=== PATIENT | female | born 1980 | race Caucasian/White ===

== ENCOUNTER 2017-06-24 02:19 | Day surgery (SDC) | payer OTHER ==
[2017-06-24] MEDS ORDERED: Promethazine HCl 25 MG/ML VIAL IM/IV PRN (02:54)
--- NOTE | 2017-06-24 02:58 | PDOC.EVN ---
Event Note - Event Note Event Note: Patient just arrived to Triage. Time: 0250 Location: L&D Patient of Dr Rosemarie Frank CC: possible renal colic HPI: 36 yo at 30 weeks 2 days (EDC 08/31/17), here for possible renal colic. Last episode of annemarie;l colic was years ago. No past surgical intervention. Past OB: SVDs Allergies: None Remainder of eval pending as I am currently beginning an operative case with another patient. If needed, care will be transferred to [facility] as I am in the OR. I will review once out of the OR. Orders for IVF, pain meds, cath UA, renal bilateral sono placed.
[2017-06-24] MEDS ORDERED: Lactated Ringer's 1,000 ML IV SCH ×2 (03:00→04:15)
[2017-06-24 03:29] VITALS: BP 124/84; TEMP 98.1
[2017-06-24 03:49] VITALS: BMI 31.7
--- NOTE | 2017-06-24 04:02 | PDOC.EVN ---
Event Note - Event Note Event Note: @0400: Please see full H&P in handwritten progress note in chart. Labs and US ordered. Patient seen at bedside. Index of suspicion for renal colic is low as patient not clinically with renal colic sxs. On interview, patient was suspicious of a stone due to "pink" urine. No other sxs.
[2017-06-24] MEDS ORDERED: HYDROcodone/Acetaminophen 5/325 mg Tablet PO PRN ×2 (04:11)
[2017-06-24] MEDS ORDERED: Adacel (T-DAP) 0.5 ML VIAL IM ONE (04:11)
[2017-06-24] MEDS ORDERED: Meperidine HCl/PF 25 MG/ML VIAL IM PRN (04:11)
[2017-06-24] MEDS ORDERED: Lanolin Ointment 7 GM TUBE TOP PRN (04:11)
[2017-06-24] MEDS ORDERED: Varicella virus, LIVE 0.5 ML VIAL SC ONE (04:11)
[2017-06-24] MEDS ORDERED: Simethicone Chewable 80 MG TAB PO PRN (04:11)
[2017-06-24] MEDS ORDERED: Measles/Mumps/Rubella 10 MCG/0.5 ML VIAL SC ONE (04:11)
[2017-06-24] MEDS ORDERED: diphenhydrAMINE 25 MG CAP PO PRN (04:11)
--- NOTE | 2017-06-24 04:15 | PDOC.EVN ---
Event Note - Event Note Event Note: Cervix closed. Renal sono with physiologic hydro on right as only finding ( verbal). Labs pending. patient comfortable.
[2017-06-24 04:18] LABS: #Eosinphils 0.1 thou/uL (0.0-0.7); #Lymphocytes 1.6 thou/uL (1.20-3.40); #Monocytes 0.4 thou/uL (0.11-0.59); #Neutrophils 7.7 thou/uL (1.40-6.50); %Basophils 0.3 % (0.0-1.0); %Eosinophils 1.2 % (0.0-10.0); %Lymphocytes 16.6 % (21.0-51.0); %Monocytes 3.9 % (0.0-10.0); Hemoglobin 11.9 g/dL (12.0-16.0); Mean Corpuscular HGB CONC 34.6 g/dL (32.0-36.0); Mean Corpuscular Hemoglobin 32.1 pg (27.0-31.0); Mean Corpuscular Volume 92.7 fl (81.0-99.0); Mean Platelet Volume 6.2 fL (7.4-10.4); Platelet Count 225 thou/uL (130-400); RBC Distribution Width 11.1 % (11.5-14.5); Red Blood Cell (RBC) Count 3.71 mill/uL (4.20-5.40); White Blood Cell (WBC) Count 9.8 thou/uL (4.8-10.8)
[2017-06-24 04:30] LABS: Bilirubin Negative (Negative); Blood, Urine Large (Negative); Clarity CLOUDY (Clear); Glucose, Urine (Dipstick) Negative (Negative); Leukocyte Negative (Negative); Nitrite Negative (Negative); Protein, Urine (Dipstick) 30 mg/dL (Neg-Trace); Specific Gravity, Urine 1.012 (1.002-1.036); Urobilinogen 0.2 mg/dL (0.2-1.0); pH, Urine 6.5 (5.0-9.0)
[2017-06-24 04:33] LABS: Bacteria/HPF None Seen HPF (None Seen); Hyaline Casts/LPF 4-6 HYALINE CAST LPF (0-3 Hyaline); Pathc Cast-AUWi Flag 1.59 (0-2.49); RBC/HPF GREATER THAN 50-TNTC HPF (0-3); WBC/HPF 0-3 HPF (0-3)
[2017-06-24 04:39] LABS: Crystals/HPF None Seen HPF (Negative); Renal Epithelial None Seen HPF (0-3); Transitional Epithelial NONE SEEN HPF (0-3); Yeast-All Forms None Seen HPF (None Seen)
--- NOTE | 2017-06-24 04:54 | PDOC.EVN ---
Event Note - Event Note Event Note: Labs: CBC normal. UA with hematuria. As patient stable, afebrile, without dysuria, we will follow as outpatient. If hematuria persists, may alejo urology evaluation .
[2017-06-24] MEDS ORDERED: Ibuprofen 800 MG TAB PO SCH (06:00)
[2017-06-24] MEDS ORDERED: Prenatal Vitamin 1 TAB PO SCH (09:00)
--- NOTE | 2017-06-24 09:42 | ULT ---
PRELIMINARY REPORT/[facility]/EMERGENTY AFTER-HOURS PROCEDURE US Retroperitoneal Complete EXAM DATE/TIME: Exam ordered 06/24/2017 3:06 AM CLINICAL HISTORY: 36 years old, female; Pain; Other: Rt flank pain; ; Patient HX: Patient 30 wks with rt flank pain; Additional info: HX: Kidney stones TECHNIQUE: Real-time ultrasound of the retroperitoneum (complete) with image documentation. COMPARISON: No relevant prior studies available. FINDINGS: Right kidney: There is severe RIGHT hydroureteronephrosis. The RIGHT kidney measures 12.0-5.5 x 5.6 c m. No calculi are identified. Left kidney: The LEFT kidney measures 10.4 x 4.6 x 4.6 cm. no calculi or hydronephrosis. Bladder: Prevoid urinary bladder volume measures 6 cc. IMPRESSION: There is severe RIGHT hydroureteronephrosis. Thank you for allowing us to participate in the care of your patient. Dictated and Authenticated by: Grabiel Chambers MD 06/24/2017 4:26 AM Central Time ([place] & [place]) FINAL REPORT BILATERAL RENAL ULTRASOUND: Date: 06/24/17 COMPARISON: 09/12/12. HISTORY: Renal colic. TECHNIQUE: Sagittal and transverse imaging of kidneys performed. FINDINGS: This report is in agreement with the preliminary report by Zaheer. There is moderate to severe right-si ded hydronephrosis and hydroureter. Despite interrogation, the health record technician reports that the right ure teral jet cannot be appreciated. There is left renal cortical thinning suggesting chronic kidney disease. No evidence of left-sided ob structive uropathy. IMPRESSION: Severe right-sided obstructive uropathy. The right ureteral jet is not appreciated. POS: PPP
== END 2017-06-24 05:33 | disposition home or self-care (01) ==
LOC: L&D/OP 02:19
PROVIDERS: ATTEND Family Medicine
DX: O99.89 Other specified diseases and conditions complicating pregnancy, childbirth and the puerperium (principal); N13.39 Other hydronephrosis; R10.9 Unspecified abdominal pain; R31.9 Hematuria, unspecified; O09.523 Supervision of elderly multigravida, third trimester; Z3A.30 30 weeks gestation of pregnancy; Z88.0 Allergy status to penicillin; Z91.018 Allergy to other foods
CPT/HCPCS: 76770; 81003; 81015; 85025; 96360; 99283; J0595; J2550

== ENCOUNTER 2017-07-06 13:51 | Outpatient (CLI) | payer OTHER ==
[2017-07-06 14:42] LABS: Anion Gap 13 mmol/L (10-20); BUN (Urea Nitrogen) 10 mg/dL (7.0-18.7); Calc. Creatinine Clearance 0 mL/min (70-130); Calcium 9.6 mg/dL (7.8-10.44); Carbon Dioxide 24 mmol/L (22-29); Chloride 104 mmol/L (98-107); Estimated GFR-MDRD Greater than 90; Glucose 98 mg/dL (70-105); Sodium 137 mmol/L (136-145)
--- NOTE | 2017-07-06 14:54 | ULT ---
RENAL ULTRASOUND: COMPARISON: 06/24/17. HISTORY: Renal calculi. Obstruction. patient. TECHNIQUE: Sagittal and transverse imaging of the kidneys is performed. FINDINGS: The right kidney measures 11.5 x 6.6 x 5.7 cm. The left kidney measures 11.7 x 4.6 x 4.1 cm. Severe right-sided hydronephrosis, similar to the previous examination. Echogenic material in the lo wer pole of the right kidney measuring 1.0 cm may represent nonobstructing intrarenal calculi. No evidence of left-sided hydronephrosis. The urinary bladder is unremarkable. Pre void bladder volume is 228 cm. Post void bladder is nearly empty. Note, the left ureteral jet was appreciated. The right ureteral jet was not seen. IMPRESSION: 1. Persistent severe right-sided hydronephrosis. The right ureteral jet was not seen. 2. Nonobstructing calculi in the lower pole of the right kidney. Results of the study discussed with Jael Jackson's human resources office assistant 07/06/17 at 3:10 p.m. CODE CR POS: PASCALE
[2017-07-06 14:59] LABS: Bilirubin Negative (Negative); Blood, Urine Negative (Negative); Clarity Clear (Clear); Glucose, Urine (Dipstick) Negative (Negative); Leukocyte Negative (Negative); Nitrite Negative (Negative); Protein, Urine (Dipstick) Negative (Neg-Trace); Urobilinogen 0.2 mg/dL (0.2-1.0)
[2017-07-06 15:27] LABS: Bacteria/HPF Rare-Few HPF (None Seen); RBC/HPF None Seen HPF (0-3); WBC/HPF None Seen HPF (0-3)
== END 2017-07-06 13:52 | disposition home or self-care (01) ==
LOC: SCSULT 13:51
PROVIDERS: ATTEND Urology
DX: N20.0 Calculus of kidney (principal); N13.30 Unspecified hydronephrosis
CPT/HCPCS: 76770; 80048; 81001

== ENCOUNTER 2017-07-22 07:03 | Day surgery (SDC) | payer OTHER ==
[2017-07-21 10:33] VITALS: BMI 32.2
[2017-07-22 07:35] LABS: Calc. Creatinine Clearance 163 mL/min (70-130); Estimated GFR-MDRD Greater than 90
[2017-07-22 07:40] LABS: INR-International Normal Ratio 0.9; Prothrombin Time 12.3 SEC (12.0-14.7)
[2017-07-22 07:44] LABS: PTT 24.9 SEC (22.9-36.1)
[2017-07-22 07:57] VITALS: BP 113/65; TEMP 97.8
[2017-07-22] MEDS ORDERED: cefTRIAXone\\ROCEPHIN 1 GM in Sodium Chloride 0.9% 100 ML IVPB SCH (08:00)
--- NOTE | 2017-07-22 10:28 | ULT ---
RENAL SONOGRAM: HISTORY: Hydronephrosis. [id number] . COMPARISON: 07/06/2017 FINDINGS: On today's exam, the right kidney is 10.4 cm. Hydronephrosis is similar to the previous exam. The l eft kidney has a normal appearance without hydronephrosis. Initially, the urinary bladder was completely decompressed. The patient was given IV saline for hydration and distention of the urinary bladder. A strong left u reteral jet was visualized. A less prominent right ureteral jet was confidently identified on multip le occasions. The right renal cortex is significantly thinned, suggesting that the hydronephrosis and developing at [facility] are significantly more chronic than the 34-week . IMPRESSION: 1. Right hydronephrosis, not significantly changed. 2. Right ureteral jet confidently demonstrated. 3. Given the visualization of the right ureteral jet and the chronic appearing atrophy of the right kidney, the appearance is suggestive of a longstanding partial obstruction. Given the patient's 34 w viejas , the scheduled percutaneous nephrostomy is favored to not be best for the patient. Ple ase consider renal/urinary workup after . Radionuclide renogram would evaluate for differen tial renal function and urine clearance from the renal collecting systems. Findings were discussed in detail with the patient, who understands and agrees. A message was also left with Dr. Jackson regarding the findings and plan. CODE CR POS: PASCALE
== END 2017-07-22 10:30 | disposition home or self-care (01) ==
LOC: SPEC 07:03
PROVIDERS: ATTEND Urology
DX: O99.89 Other specified diseases and conditions complicating pregnancy, childbirth and the puerperium (principal); N13.30 Unspecified hydronephrosis; Z3A.34 34 weeks gestation of pregnancy; Z88.0 Allergy status to penicillin; Z91.018 Allergy to other foods; Z91.013 Allergy to seafood; Z79.899 Other long term (current) drug therapy
CPT/HCPCS: 36415; 76770; 82565; 85610; 85730; J0696; J7050

== ENCOUNTER 2017-08-25 05:00 | Inpatient (IN) | payer OTHER ==
[2017-08-25] MEDS ORDERED: Lidocaine 1% (PF) 30 ML VIAL SC PRN (06:14)
[2017-08-25] MEDS ORDERED: Methylergonovine 0.2 MG/ML VIAL IM PRN (06:14)
[2017-08-25] MEDS ORDERED: NS w/ Oxytocin 10 units 500 ML IV SCH ×2 (06:14)
[2017-08-25] MEDS ORDERED: NS / Oxytocin 40 units/1000ml 1,000 ML IV PRN (06:14)
[2017-08-25] MEDS ORDERED: Misoprostol 200 MCG TAB PR PRN (06:14)
[2017-08-25] MEDS ORDERED: Butorphanol Tartrate 1 MG/ML VIAL SLOW IVP PRN (06:14)
[2017-08-25] MEDS ORDERED: HYDROcodone/Acetaminophen 5/325 mg Tablet PO PRN ×2 (06:14→13:30)
[2017-08-25] MEDS ORDERED: Ibuprofen 800 MG TAB PO PRN (06:14)
[2017-08-25] MEDS ORDERED: Acetaminophen 500 MG TAB PO PRN (06:14)
[2017-08-25] MEDS ORDERED: Ondansetron HCl/PF 4 MG/2 ML Vial IVP PRN ×3 (06:14→13:30)
[2017-08-25] MEDS ORDERED: Acetaminophen/Codeine 30-300mg Tablet PO PRN ×2 (06:14→13:30)
[2017-08-25] MEDS ORDERED: Promethazine HCl 25 MG/ML VIAL IM PRN ×2 (06:14→10:56)
[2017-08-25] MEDS: Lactated Ringer's 1,000 ML IV SCH ×2 (07:00→10:45)
[2017-08-25 07:12] LABS: Hemoglobin 11.8 g/dL (12.0-16.0); Mean Corpuscular HGB CONC 35.4 g/dL (32.0-36.0); Mean Corpuscular Hemoglobin 31.6 pg (27.0-31.0); Mean Corpuscular Volume 89.4 fL (78.0-98.0); Mean Platelet Volume 6.6 fL (7.4-10.4); Platelet Count 215 thou/uL (130-400); RBC Distribution Width 11.5 % (11.5-14.5); Red Blood Cell (RBC) Count 3.73 mill/uL (4.20-5.40); White Blood Cell (WBC) Count 8.2 thou/uL (4.8-10.8)
[2017-08-25 07:15] VITALS: BMI 32.8
[2017-08-25 07:58] LABS: Hep B Surf Ag Non-Reactive S/CO (NonReactive)
[2017-08-25 07:59] LABS: Syphilis Antibody Nonreactive (Nonreactive); Syphilis Antibody Index 0.06 S/CO (<1.00 Non-Reactive)
[2017-08-25] MEDS ORDERED: DISCONTINUE ALL PREVIOUS NARCOTICS FS SCH (08:45)
[2017-08-25] MEDS ORDERED: Bupivacaine 0.75% 13.4 ML, fentaNYL Citrate/PF 400 MCG in Sodium Chloride 0.9% 78.6 ML EPIDURAL SCH (08:45)
[2017-08-25] MEDS ORDERED: diphenhydrAMINE 50 MG/ML VIAL IVP PRN (10:56)
[2017-08-25] MEDS ORDERED: Naloxone HCl 0.4 mg/ml Vial IVP PRN ×2 (10:56)
[2017-08-25] MEDS ORDERED: Lactated Ringer's 500 ML IV PRN (10:56)
[2017-08-25] MEDS ORDERED: ePHEDrine/0.9% NaCl/PF SYRINGE 50 mg/10 ml SLOW IVP PRN (10:56)
[2017-08-25] MEDS ORDERED: Acetaminophen 325 MG TAB PO PRN (10:56)
[2017-08-25] MEDS ORDERED: Eucerin (Mineral Oil/Petrolatum,White) 30 gm Jar TOP PRN (10:56)
[2017-08-25] MEDS ORDERED: fentaNYL Citrate/PF 400 MCG, Bupivacaine 0.5% 20 ML in Sodium Chloride 0.9% 72 ML EPIDURAL SCH (11:00)
[2017-08-25] MEDS ORDERED: Communication Order-Pharmacy FS SCH (11:00)
[2017-08-25] MEDS ORDERED: Benzocaine/Menthol 20-0.5% 60 ML CAN TOP PRN (13:30)
[2017-08-25] MEDS ORDERED: NS / Oxytocin 40 units/1000ml 1,000 ML IV SCH (13:30)
[2017-08-25] MEDS ORDERED: Preparation H Ointment 28 GM TUBE PR PRN (13:30)
[2017-08-25] MEDS ORDERED: Lanolin Ointment 7 GM TUBE TOP PRN (13:30)
[2017-08-25] MEDS ORDERED: Milk Of Magnesia 30 ML UDCUP PO PRN (13:30)
[2017-08-25] MEDS ORDERED: traMADol HCl 50 MG TAB PO PRN (13:30)
[2017-08-25] MEDS ORDERED: Bisacodyl 10 MG SUPP PR PRN (13:30)
[2017-08-25] MEDS ORDERED: diphenhydrAMINE 25 MG CAP PO PRN (13:30)
[2017-08-25] MEDS ORDERED: Prenatal Vitamin 1 TAB PO SCH (13:45)
[2017-08-25] MEDS ORDERED: Docusate Calcium (SURFAK) 240 MG CAP PO SCH (13:45)
[2017-08-25] MEDS: Ibuprofen 800 MG TAB PO SCH ×2 (18:09→23:18)
[2017-08-25] MEDS: Docusate Calcium (SURFAK) 240 MG CAP PO SCH (21:52)
[2017-08-26] MEDS: Ibuprofen 800 MG TAB PO SCH ×2 (02:13→10:40)
[2017-08-26] MEDS ORDERED: Prenatal Vitamin 1 TAB PO SCH (09:00)
[2017-08-26] MEDS ORDERED: Adacel (T-DAP) 0.5 ML VIAL IM ONE (10:30)
[2017-08-26] MEDS: Docusate Calcium (SURFAK) 240 MG CAP PO SCH (10:37)
[2017-08-26 11:48] VITALS: BP 112/63; TEMP 98.5
[2017-08-26] MEDS ORDERED: Lidocaine 2% MPF 10 ML AMP (For Epidural Use) ONE (15:25)
== END 2017-08-26 15:50 | disposition home or self-care (01) | DRG 775 ==
LOC: L&D 06:09 → 3SW 17:00
PROVIDERS: ADMIT Family Medicine; ATTEND Family Medicine
PROC: 10907ZC Drainage of Amniotic Fluid, Therapeutic from Products of Conception, Via Natural or Artificial Opening (ICD-10-PCS; principal; 2017-08-25)
PROC: 10E0XZZ Delivery of Products of Conception, External Approach (ICD-10-PCS; 2017-08-25)
PROC: 3E0S3BZ Introduction of Anesthetic Agent into Epidural Space, Percutaneous Approach (ICD-10-PCS; 2017-08-25)
PROC: 00HU33Z Insertion of Infusion Device into Spinal Canal, Percutaneous Approach (ICD-10-PCS; 2017-08-25)
DX: O99.89 Other specified diseases and conditions complicating pregnancy, childbirth and the puerperium (principal); N13.2 Hydronephrosis with renal and ureteral calculous obstruction; Q61.5 Medullary cystic kidney; Z37.0 Single live birth; Z3A.39 39 weeks gestation of pregnancy; Z88.0 Allergy status to penicillin; Z64.1 Problems related to multiparity
CPT/HCPCS: 36415; 51702; 85027; 86780; 86850; 86900; 86901; 87340; 90715; J2001; J3010; J7050

== ENCOUNTER 2017-09-14 13:46 | Outpatient (CLI) | payer OTHER | END 2017-09-14 13:47 | disposition home or self-care (01) | LOC: BICULT 13:46 | PROVIDERS: ATTEND Urology | DX: N13.30 Unspecified hydronephrosis (principal); N28.89 Other specified disorders of kidney and ureter | CPT/HCPCS: 76770 ==

== ENCOUNTER 2021-01-13 20:13 | Emergency (ER) | payer SELFPAY ==
[2021-01-13 20:49] LABS: Bacteria/HPF None Seen HPF (None Seen); Bilirubin Negative (Negative); Blood, Urine Negative (Negative); Calcium Oxalate Crystals 2+ HPF (None Seen); Clarity Clear (Clear); Glucose, Urine (Dipstick) Normal (Negative); Ketone, Urine Negative (Negative); Leukocyte 25 Leu/uL (Negative); Mucous/LPF Rare LPF (<2+); Nitrite Negative (Negative); Protein, Urine (Dipstick) Negative (Neg-Trace); RBC/HPF 0-3 HPF (0-3); Specific Gravity, Urine 1.022 (1.002-1.036); Squamous Epithelial 0-3 HPF (0-3); Urobilinogen Normal mg/dL (Less than 2); pH, Urine 5.5 (5.0-9.0)
[2021-01-13 20:51] LABS: Pregnancy Test - Urine (BHCG) Negative (Negative); Pregu Control Background? CLEAR/WHITE (CLR/WHITE); Pregu Control Bar Appear? YES (CONTROL BAR); Specific Gravity 1.022 (1.002-1.036)
[2021-01-13 21:33] LABS: #Eosinphils 0.1 thou/uL (0.0-0.7); #Lymphocytes 1.3 thou/uL (1.20-3.40); #Monocytes 0.3 thou/uL (0.11-0.59); #Neutrophils 4.8 thou/uL (1.40-6.50); %Basophils 0.5 % (0.0-1.0); %Eosinophils 0.9 % (0.0-10.0); %Lymphocytes 19.6 % (21.0-51.0); %Monocytes 4.3 % (0.0-10.0); %Neutrophils 74.7 % (42.0-75.0); Hemoglobin 13.9 g/dL (12.0-16.0); Mean Corpuscular HGB CONC 34.1 g/dL (32.0-36.0); Mean Corpuscular Hemoglobin 32.4 pg (27.0-31.0); Mean Corpuscular Volume 95.2 fL (78.0-98.0); Mean Platelet Volume 6.3 fL (7.4-10.4); Platelet Count 266 thou/uL (130-400); RBC Distribution Width 10.7 % (11.5-14.5); Red Blood Cell (RBC) Count 4.28 mill/uL (4.20-5.40); White Blood Cell (WBC) Count 6.5 thou/uL (4.8-10.8)
[2021-01-13] MEDS ORDERED: Ketorolac Tromethamine 30 MG/ML VIAL ONE ×2 (21:38→21:41)
[2021-01-13] MEDS ORDERED: Ondansetron PF 4 MG/2 ML Vial ONE (21:38)
[2021-01-13 21:54] LABS: ALT (SGPT) 9 U/L (8-55); AST (SGOT) 15 U/L (5-34); Albumin 4.2 g/dL (3.5-5.0); Alkaline Phosphatase 53 U/L (40-110); Anion Gap 16 mmol/L (10-20); BUN (Urea Nitrogen) 9 mg/dL (7.0-18.7); Bilirubin, Total 0.6 mg/dL (0.2-1.2); Calc. Creatinine Clearance 0 mL/min (70-130); Calcium 9.5 mg/dL (7.8-10.44); Carbon Dioxide 22 mmol/L (22-29); Chloride 105 mmol/L (98-107); Globulin 3.2 g/dL (2.4-3.5); Glucose 111 mg/dL (70-105); Lipase 17 U/L (8-78); Potassium 4.5 mmol/L (3.5-5.1); Protein, Total 7.4 g/dL (6.0-8.3); Sodium 138 mmol/L (136-145)
[2021-01-13 22:51] LABS: BHCG - Serum Negative (NEGATIVE); Pregs Control Background? CLEAR/WHITE (CLR/WHITE); Pregs Control Bar Appear? YES (CONTROL BAR)
== END 2021-01-13 22:25 | disposition home or self-care (01) ==
LOC: ERS 20:13
DX: E83.59 Other disorders of calcium metabolism (principal); N29 Other disorders of kidney and ureter in diseases classified elsewhere; N39.0 Urinary tract infection, site not specified
CPT/HCPCS: 74176; 80053; 81003; 81015; 81025; 83690; 84703; 85025; 87077; 87086; 96374; 96375; J1885; J2405

== ENCOUNTER 2023-06-25 12:36 | Outpatient (CLI) | payer BC | END 2023-06-25 12:37 | disposition home or self-care (01) | LOC: BICMAMMO 12:36 | PROVIDERS: ATTEND Family Medicine | DX: Z12.31 Encounter for screening mammogram for malignant neoplasm of breast (principal); N63.15 Unspecified lump in the right breast, overlapping quadrants | CPT/HCPCS: 77063; 77067 ==

== ENCOUNTER 2024-01-26 13:33 | Outpatient (CLI) | payer BC | END 2024-01-26 13:34 | disposition home or self-care (01) | LOC: BICMAMMO 13:33 | PROVIDERS: ATTEND Family Medicine | DX: R92.8 Other abnormal and inconclusive findings on diagnostic imaging of breast (principal); N64.89 Other specified disorders of breast | CPT/HCPCS: G0279 ==

== ENCOUNTER 2025-01-15 08:29 | Outpatient (CLI) | payer OTHER | END 2025-01-15 08:30 | disposition home or self-care (01) | LOC: SCSULT 08:29 | PROVIDERS: ATTEND Otolaryngology Plastic Surgery within the Head & Neck | DX: E04.1 Nontoxic single thyroid nodule (principal) | CPT/HCPCS: 76536 ==